=== PATIENT | female | born 1970 | race Caucasian/White ===

== ENCOUNTER 2017-04-28 14:09 | Emergency (ER) | payer OTHER ==
[2017-04-28] MEDS: Nitroglycerin 0.4 MG Tab.SL SL PRN ×3 (14:17→14:32)
[2017-04-28] MEDS ORDERED: Aspirin 81 MG Tab.Chew PO ONE (14:22)
--- NOTE | 2017-04-28 14:28 | EDM.PDOC ---
ED HPI GENERAL MEDICAL PROBLEM - General Chief Complaint: Chest Pain Stated Complaint: SOB Time Seen by Provider: 04/28/17 14:15 Source of Information: Reports: Patient History Limitations: Reports: No Limitations - History of Present Illness INITIAL COMMENTS - FREE TEXT/NARRATIVE: 47 yo female 1 ppd smoker for 34 yrs presents with chest pain that began while grouting tile with her today. Had some mild SOB and diaphoresis. Has a pHx of HTN normally managed well with losartan 50 mg and HCTZ 25 mg which she has been taking as prescribed. Has no cardiac hx, but did have chest pain yesterday that occurred for about 20 minutes while grouting yesterday relieved at rest. Did take an aspirin tablet before coming in today. Pain to the upper/ anterior chest. No radiation. Her mother had NH at age 40. Onset: Today Onset Date: 04/28/17 Onset Time: 13:45 Duration: Minutes:, Constant Location: Reports: Chest Quality: Reports: Ache Severity: Moderate Improves with: Reports: None Worsens with: Reports: None Context: Reports: Exercise Associated Symptoms: Reports: Chest Pain, Diaphoresis, Shortness of Breath. Denies: Nausea/Vomiting Treatments ASSOCIATE BUYER: Reports: Aspirin chest Pain Score (Numeric/FACES): 10 - Related Data Allergies Allergy/AdvReac Type Severity Reaction Status Date / Time atorvastatin [From Lipitor] Allergy Muscle Verified 04/28/17 14:47 Aches steroid Allergy Rash Uncoded 04/28/17 14:47 Home Meds: Home Meds Ferrous Sulfate 324 mg PO ASDIRECTED 04/28/17 [History] Hydrochlorothiazide 25 mg PO DAILY 04/28/17 [History] Losartan [Cozaar] 50 mg PO DAILY 04/28/17 [History] ED ROS GENERAL - Review of Systems Review Of Systems: See Below Constitutional: Reports: Diaphoresis HEENT: Reports: No Symptoms Respiratory: Reports: Shortness of Breath Cardiovascular: Reports: No Symptoms Endocrine: Reports: No Symptoms GI/Abdominal: Reports: No Symptoms : Reports: No Symptoms Musculoskeletal: Reports: No Symptoms Skin: Reports: No Symptoms Neurological: Reports: No Symptoms Psychiatric: Reports: No Symptoms Hematologic/Lymphatic: Reports: No Symptoms ED EXAM, GENERAL - Physical Exam Exam: See Below Exam Limited By: No Limitations General Appearance: Alert, WD/WN, No Apparent Distress Eye Exam: Bilateral Eye: EOMI, Normal Inspection Ears: Normal External Exam, Normal Canal, Hearing Grossly Normal, Normal TMs Ear Exam: Bilateral Ear: Auricle Normal Nose: Normal Inspection, Normal Mucosa, No Blood Throat/Mouth: Normal Inspection, Normal Lips, Normal Teeth, Normal Oropharynx, Normal Voice, No Airway Compromise Head: Atraumatic, Normocephalic Neck: Normal Inspection, Supple, Non-Tender Respiratory/Chest: No Respiratory Distress, Lungs Clear, Normal Breath Sounds, No Accessory Muscle Use, Chest Non-Tender Cardiovascular: Regular Rate, Rhythm, No Edema GI/Abdominal: Normal Bowel Sounds, Soft, Non-Tender, No Distention, Tender ( epigastrium) Back Exam: Normal Inspection Extremities: Normal Inspection, Normal Range of Motion, Non-Tender, No Pedal Edema Neurological: Alert, Oriented, CN II-XII Intact, Normal Cognition, No Motor/ Sensory Deficits Psychiatric: Normal Affect, Normal Mood Skin Exam: Warm, Dry, Intact, Normal Color, No Rash Lymphatic: No Adenopathy EKG INTERPRETATION EKG Date: 04/28/17 Time: 14:10 Rhythm: NSR Rate (Beats/Min): 82 [place]ard: Normal P-Wave: Present QRS: Normal ST-T: Normal QT: Normal Comparison: Change From Previous EKG (T waves in III now upright, new AVL ST depression, rate increased by 29/min) EKG Interpretation Comments: LVH noted Course - Vital Signs Text/Narrative:: NTG 0.4 mg SL, pain reduced after first dose, gone after second dose. Metoprolol tartrate 50 mg po, oxygen @ 2 liters/min/nc CXR-negative EKG #1-pain 9/10-see interpretation EKG #2(with pain gone)-T wave changes in II, III, AVF, and AVL compared with first EKG Discussed case with Dr. Bagley, [facility] @ 1520h, accepts in transfer Plavix 600 mg po, Heparin 5000 U IV, NTG drip @ 5 mcg/min Last Recorded V/S: Last Vital Signs Temp 36.9 C 04/28/17 14:10 Pulse 78 04/28/17 14:35 Resp 28 H 04/28/17 14:10 BP 165/109 H 04/28/17 14:35 Pulse Ox 95 04/28/17 14:20 - Orders/Labs/Meds Orders: Active Orders 24 hr Category Date Time Status Cardiac Monitoring [RC] .As Directed Care 04/28/17 14:15 Active Chest 1V Frontal [CR] Stat Exams 04/28/17 14:22 Taken UA W/MICROSCOPIC [URIN] Stat Lab 04/28/17 14:21 Uncollected Clopidogrel [Plavix] Med 04/28/17 15:25 Once 600 mg PO ONETIME ONE Heparin Sodium Med 04/28/17 15:25 Once 5,000 units IVPUSH ONETIME ONE Nitroglycerin/D5W [Nitroglycerin 25 MG/D5W 250 ML] Med 04/28/17 15:30 Ordered 25 mg in 250 ml IV TITRATE EKG 12 Lead [EK] Routine Ther 04/28/17 14:15 Ordered EKG 12 Lead [EK] Routine Ther 04/28/17 15:00 Ordered Labs: Laboratory Tests 04/28/17 04/28/17 04/28/17 Range/Units 14:25 14:25 14:25 WBC 8.4 (4.5-12.0) X10-3/uL RBC 4.24 (3.23-5.20) x10(6)uL Hgb 13.4 (11.5-15.5) g/dL Hct 40.3 (30.0-51.3) % MCV 95.0 (80-96) fL MCH 31.6 (27.7-33.6) pg MCHC 33.3 (32.2-35.4) g/dL RDW 14.1 (11.5-15.5) % Plt Count 256 (125-369) X10(3)uL Sodium 137 (135-145) mmol/L Potassium 3.7 (3.5-5.3) mmol/L Chloride 104 (100-110) mmol/L Carbon Dioxide 25 (23-29) mmol/L BUN 15 (5-20) mg/dL Creatinine 1.1 (0.6-1.3) mg/dL Est Cr Clr Drug Dosing TNP Estimated GFR (MDRD) 53 L (>60) BUN/Creatinine Ratio 13.6 (9-20) Glucose 156 H (80-116) mg/dL Calcium 9.2 (8.6-10.2) mg/dL Troponin I < 0.01 L (0.02-0.06) NG/ML Meds: Medications Discontinued Medications Generic Name Dose Route Start Last Admin Trade Name Freq PRN Reason Stop Dose Admin Aspirin 324 mg 04/28/17 14:22 04/28/17 15:03 Aspirin PO 04/28/17 14:23 Not Given ONETIME ONE Metoprolol Tartrate 50 mg 04/28/17 14:30 04/28/17 14:35 Lopressor PO 04/28/17 14:31 50 mg ONETIME ONE Administration Nitroglycerin 0.4 mg 04/28/17 14:22 Nitrostat SL 04/28/17 14:33 Q5M PRN Chest Pain Departure - Departure Time of Disposition: 15:50 Disposition: DC/Tfer to Acute Hospital 02 Reason for Transfer *Q: Other Condition: Fair Clinical Impression: Unstable angina, Tobacco abuse Forms: ED Department Discharge - My Orders Last 24 Hours: My Active Orders 04/28/17 14:15 Cardiac Monitoring [RC] .As Directed EKG 12 Lead [EK] Routine 04/28/17 14:21 UA W/MICROSCOPIC [URIN] Stat 04/28/17 14:22 Chest 1V Frontal [CR] Stat 04/28/17 15:00 EKG 12 Lead [EK] Routine 04/28/17 15:25 Clopidogrel [Plavix] 600 mg PO ONETIME ONE Heparin Sodium 5,000 units IVPUSH ONETIME ONE 04/28/17 15:30 Nitroglycerin/D5W [Nitroglycerin 25 MG/D5W 250 ML] 25 mg in 250 ml IV TITRATE - Assessment/Plan Last 24 Hours: My Active Orders 04/28/17 14:15 Cardiac Monitoring [RC] .As Directed EKG 12 Lead [EK] Routine 04/28/17 14:21 UA W/MICROSCOPIC [URIN] Stat 04/28/17 14:22 Chest 1V Frontal [CR] Stat 04/28/17 15:00 EKG 12 Lead [EK] Routine 04/28/17 15:25 Clopidogrel [Plavix] 600 mg PO ONETIME ONE Heparin Sodium 5,000 units IVPUSH ONETIME ONE 04/28/17 15:30 Nitroglycerin/D5W [Nitroglycerin 25 MG/D5W 250 ML] 25 mg in 250 ml IV TITRATE
[2017-04-28] MEDS ORDERED: Metoprolol Tartrate 50 MG Tab PO ONE (14:30)
[2017-04-28] MEDS ORDERED: Heparin Sodium 5,000 Units/ML Vial IVPUSH ONE (15:25)
[2017-04-28] MEDS ORDERED: Clopidogrel 75 MG Tab PO ONE (15:25)
[2017-04-28] MEDS ORDERED: Nitroglycerin/D5W 25 MG/250 ML BOTTLE IV SCH (15:30)
[2017-04-28 15:59] VITALS: BP 138/84
--- NOTE | 2017-04-29 09:56 | CR ---
INDICATION: Chest pain. CHEST: An AP upright view of the chest x2 was obtained 04/28/2017. No comparisons were available. There is evidence of exogenous obesity. The heart appears to be normal in size and shape. The aorta is minimally tortuous. Overlying EKG leads are noted. An active infiltrate or effusion was not identified. Relatively poor inspiration makes it difficult to entirely exclude minimal patchy bronchopneumonia at the lung bases due to the heavy markings emphasized by the poor inspiration. IMPRESSION: No acute process. MTDD
== END 2017-04-28 15:45 ==
LOC: FB.ED 14:09
DX: I20.0 Unstable angina (principal); Z88.8 Allergy status to other drugs, medicaments and biological substances; Z79.899 Other long term (current) drug therapy; Z72.0 Tobacco use
CPT/HCPCS: 36415; 71010; 80048; 84484; 85027; 93005; 96374; 96375; 99285; A9270; J1644